=== PATIENT | male | born 1990 | race African-American/Black ===

== ENCOUNTER 2023-11-22 00:46 | Emergency (ER) | payer SELFPAY ==
[~2023-11-22] VITALS: Ht 167.6 cm; Wt 75.0 kg
[2023-11-22 01:00] VITALS: O2SAT 98
[2023-11-22 02:44] VITALS: TEMP 98.3
[2023-11-22 08:02] VITALS: BP 125/68; PULSE 80; RESP 14
== END 2023-11-22 08:06 | disposition home or self-care (01) ==
LOC: ER 00:46
DX: F10.129 Alcohol abuse with intoxication, unspecified (principal); Y90.8 Blood alcohol level of 240 mg/100 ml or more
CPT/HCPCS: 36415; 80320; 99283; G0480